=== PATIENT | female | born 1965 | race Caucasian/White ===

== ENCOUNTER 2018-06-02 00:32 | Inpatient (IN) | payer OTHER ==
[~2018-06-02] VITALS: Ht 144.8 cm; Wt 76.7 kg
[2018-06-03] VITALS (7 sets, daily range): BP systolic 87–115; BP diastolic 42–60
--- NOTE | 2018-06-03 00:45 | NUR ---
REPORT RECEIVED BY PHONE FROM JESUP NURSEJAGRUTI RN
--- NOTE | 2018-06-03 02:23 | NUR ---
PT ARRIVED AT UNIT VIA GURNEY, DIRECT ADMIT FROM [facility], PT AMBULATED TO BED, TOLERATED WELL, DAUGHTER GENET AT BEDSIDE, PT ON ROOM AIR NO SOB, IV TO L AC 20G PATENT, INTACT SL, IV TO R HAND 18G PATENT INTACT, RUNNING NS BOLUS, INFUSING WELL, PT DENIES ANY PAIN AT THIS MOMENT, ORIENT PT TO ROOM, CALL LIGHT AND BED, MRSA SWAB TAKEN, INITIAL ASSESSMENT DONE, ALL SAFETY PRECAUTION MET, CALL LIGHT WITHIN REACH, WILL CONTINUE TO MONITOR.
[2018-06-03] MEDS ORDERED: LORazepam 2 MG/ML VIAL IVP PRN (03:00)
[2018-06-03] MEDS ORDERED: HYDROcodone/APAP 5/325 MG 1 TAB TAB PO PRN (03:00)
[2018-06-03] MEDS ORDERED: ONDANSETRON 4 MG/2 ML VIAL IVP PRN (03:00)
[2018-06-03] MEDS ORDERED: MORPHINE SULFATE 4 MG/ML SYR IVP PRN (03:00)
[2018-06-03 03:44] LABS: HEMATOCRIT 29.8 % (36-48); HEMOGLOBIN 10.3 g/dL (12.0-16.0); MEAN CORPUSCULAR HEMOGLOBIN 30 pg (27-31); MEAN CORPUSCULAR HGB CONC 34 g/dL (33-37); MEAN CORPUSCULAR VOLUME 86.6 fL (80-94); PLATELET COUNT (AUTO) 129 K/uL (140-450); RED BLOOD CELL COUNT(AUTO) 3.44 MIL/uL (4.20-5.40); RED CELL DISTRIBUTION WIDTH 13.4 % (11.6-13.7); WHITE BLOOD COUNT (AUTO) 10.6 K/uL (4.8-10.8)
[2018-06-03 03:55] LABS: ANION GAP 13.3 (8-16); CREATININE 0.6 mg/dL (0.6-1.3); POTASSIUM 3.3 mmol/L (3.5-5.1)
[2018-06-03 04:10] LABS: ALBUMIN 2.2 g/dL (3.4-5.0); TOTAL BILIRUBIN 0.5 mg/dL (0.0-1.0)
[2018-06-03 04:55] LABS: LYMPHOCYTES % (MANUAL) 6 % (20-46); MONOCYTES % (MANUAL) 2 % (5-12)
[2018-06-03] MEDS: POTASSIUM CHL 20 MEQ/NACL 0.9% 1,000 ML IV SCH ×4 (05:26→21:35)
[2018-06-03] MEDS ORDERED: PIPERACILLIN/TAZOBACTAM 3.375 GM VIAL IV ONE (05:42)
[2018-06-03] MEDS: PIPER/TAZO 3.375GM/D5W PREMIX 50 ML IV SCH ×4 (05:49→23:58)
--- NOTE | 2018-06-03 05:49 | NUR ---
DUE MEDICATION ADMINISTERED, PT TOLERATED WELL, NO DISTRESS NOTED, CALL LIGHT WITHIN REACH, WILL CONTINUE TO MONITOR.
[2018-06-03] MEDS: ACETAMINOPHEN 325 MG TAB PO PRN (06:15)
--- NOTE | 2018-06-03 06:15 | NUR ---
PT STATED HAVING A HEADACHE AND HAVING CHILLS, CHECKED ON PT TEMP 99.7, TYLENOL GIVEN FOR MILD PAIN, PT TOLERATED WELL, NO DISTRESS NOTED, CALL LIGHT WITHIN REACH, WILL CONTINUE TO MONITOR.
--- NOTE | 2018-06-03 07:30 | NUR ---
ENDORSED PT TO DAY SHIFT NURSE ABBY RN, PT STABLE, NO DISTRESS NOTED, CALL LIGHT WITHIN REACH.
--- NOTE | 2018-06-03 08:17 | NUR ---
PAGED DR RAMIREZ TO NOTIFY ABOUT PATIENT'S LOW BP AND FEVER
--- NOTE | 2018-06-03 08:30 | NUR ---
SPOKE TO THE [place] AND INFORMED HIM ABOUT PATIENT'S FEVER AND LOW BP. ORDERS RECEIVED
[2018-06-03] MEDS ORDERED: MIDODRINE 5 MG TAB PO SCH (08:36)
[2018-06-03] MEDS: ENOXAPARIN 40 MG/0.4 ML SYR SUBQ SCH (09:00)
[2018-06-03] MEDS ORDERED: HYDROCORTISONE NA SUCC 100 MG/2 ML VIAL IV SCH (09:01)
--- NOTE | 2018-06-03 09:45 | NUR ---
PATIENT EVALUATED BY DR STOKES
--- NOTE | 2018-06-03 11:26 | NUR ---
PATIENT HAS BEEN SCREENED AND CATEGORIZED HIGH NUTRITION RISK. PATIENT WILL BE SEEN WITHIN 1-2 DAYS OF ADMISSION. 06/03/18 06/04/[address]
[2018-06-03] MEDS: HYDROCORTISONE NA SUCC 100 MG/2 ML VIAL IV SCH ×2 (13:20→21:35)
[2018-06-03] MEDS: MIDODRINE 5 MG TAB PO SCH ×2 (13:20→18:36)
--- NOTE | 2018-06-03 13:45 | NUR ---
CM NOTE INITIAL REVIEW FAXED TO [facility] [phone] CARON # [phone]
--- NOTE | 2018-06-03 16:45 | NUR ---
PATIENT AMBULATED TO THE RESTROOM TO VOID. NO S/S OF DISTRESS NOTED
--- NOTE | 2018-06-03 19:33 | NUR ---
PATIENT REPORT GIVEN AT BEDSIDE. PATIENT ENDORSED IN STABLE CONDITION
--- NOTE | 2018-06-03 19:34 | NUR ---
RECEIVED PT FROM ABBY RN PT TURKISH SPEAKER AAOX4, AMBULATORY IV ON RT HAND INFUSING WELL ON TELMETRY SR RELATIVES AT BED SIDE INITIAL ASSESSMENT DONE
--- NOTE | 2018-06-03 22:00 | NUR ---
PT RESTING ON BED ON TELEMETRY SR IV ON RT HAND INFUSING WELL
[2018-06-04 00:02] VITALS: BP 122/78
--- NOTE | 2018-06-04 00:06 | NUR ---
PT REMAIN STABLE NOT DISTRESS NOTED ON TELEMETRY SR IV ON RT HAND INFUSING WELL
[2018-06-04 04:00] VITALS: BP 132/64
--- NOTE | 2018-06-04 04:00 | NUR ---
SPONGE BATH GIVEN LINEN CHANGED NOT DISTRESS NOTED ON TELEMETR SB
[2018-06-04] MEDS: HYDROCORTISONE NA SUCC 100 MG/2 ML VIAL IV SCH (05:50)
[2018-06-04] MEDS: PIPER/TAZO 3.375GM/D5W PREMIX 50 ML IV SCH ×3 (05:53→18:04)
[2018-06-04] MEDS: MIDODRINE 5 MG TAB PO SCH ×3 (06:12→18:03)
--- NOTE | 2018-06-04 06:27 | NUR ---
PT AWAKE DENIES ANY PAIN OR DISCOMFORT REMAIN STBLE AT THIS TIME
--- NOTE | 2018-06-04 07:15 | NUR ---
RECEIVED PATIENT AWAKE IN BED. PATIENT DENIES ANY PAIN OR DISCOMFORT. NO S/S OF DISTRESS. PATIENT ON TELE MONITORING. BED LOWERED WITH CALL LIGHT WITHIN REACH. WILL CONTINUE TO MONITOR
[2018-06-04 07:25] LABS: BASOPHILS % (AUTO) 0.1 % (0.0-2.0); HEMATOCRIT 29.6 % (36-48); HEMOGLOBIN 10.2 g/dL (12.0-16.0); LYMPHOCYTES # (AUTO) 1.4 K/uL (2.5-16.5); LYMPHOCYTES % (AUTO) 9.1 % (20.5-51.1); MEAN CORPUSCULAR HEMOGLOBIN 29 pg (27-31); MEAN CORPUSCULAR HGB CONC 34 g/dL (33-37); MEAN CORPUSCULAR VOLUME 85.2 fL (80-94); MONOCYTES % (AUTO) 6.6 % (1.7-9.3); NEUTROPHILS # (AUTO) 13.4 K/uL (1.8-7.7); NEUTROPHILS % (AUTO) 84.2 % (42.2-75.2); PLATELET COUNT (AUTO) 180 K/uL (140-450); RED BLOOD CELL COUNT(AUTO) 3.48 MIL/uL (4.20-5.40); RED CELL DISTRIBUTION WIDTH 13.6 % (11.6-13.7)
[2018-06-04 07:27] LABS: ANION GAP 13.7 (8-16); CARBON DIOXIDE 21.3 mmol/L (21-32); CREATININE 0.5 mg/dL (0.6-1.3)
[2018-06-04 07:33] LABS: ALBUMIN 2.3 g/dL (3.4-5.0); TOTAL BILIRUBIN 0.3 mg/dL (0.0-1.0)
[2018-06-04 07:53] VITALS: BP 159/68
[2018-06-04] MEDS: ENOXAPARIN 40 MG/0.4 ML SYR SUBQ SCH (09:41)
--- NOTE | 2018-06-04 09:41 | NUR ---
ADMINISTERED DUE MEDICATIONS. DAUGHTER PRESENT AT BEDSIDE. PATIENT DENIES ANY DISCOMFORT
--- NOTE | 2018-06-04 10:13 | NUR ---
PATIENT AMBULATING AROUND THE UNIT. NO S/S OF DISTRESS NOTED
[2018-06-04 12:00] VITALS: BP 129/68
--- NOTE | 2018-06-04 13:29 | NUR ---
06/04/18 RD INITIAL ASSESSMENT COMPLETED PLEASE REFER TO NUTRITION ASSESSMENT UNDER CARE ACTIVITY FOR ESTIMATED NUTRITIONAL NEEDS. 1. CONTINUE REGULAR DIET TOLERATED 2. CONSIDER OBTAINING HgA1c TO TEST FOR PRE DIABETES PT WITH ELEVATED GLUCOSE LEVELS 3. RD TO FOLLOW-UP 3-5 DAYS, MODERATE NUTRITION RISK XAVIER MCFARLAND, RD
--- NOTE | 2018-06-04 15:14 | NUR ---
CM NOTE CONCURRENT REVIEW FAXED TO [facility] [phone] CARON # [phone]
--- NOTE | 2018-06-04 15:30 | NUR ---
PATIENT AWAKE IN BED, TALKING ON HER PHONE. NO S/S OF DISTRESS NOTED
[2018-06-04 16:00] VITALS: BP 126/69
--- NOTE | 2018-06-04 16:45 | NUR ---
PATIENT AWAKE IN BED. NO S/S OF DISTRESS NOTED. FAMILY MEMBERS PRESENT AT BEDSIDE
--- NOTE | 2018-06-04 19:16 | NUR ---
PATIENT REPORT GIVEN AT BEDSIDE. PATIENT ENDORSED IN STABLE CONDITION
--- NOTE | 2018-06-04 19:17 | NUR ---
RECEIVED REPORT FROM DAYSAKFT NURSE AT BEDSIDE FOR CONTINUITY OF CARE. PT AAOX4. YAKUT SPEAKING. PT IV NOTED RFA 22G TKO. NO SOB NO S/S OF DISTRESS ON RA. BED LOWERED CALL LIGHT WITHIN REACH WILL CONTINUE TO MONITOR.
[2018-06-04] MEDS: ACETAMINOPHEN 325 MG TAB PO PRN (19:56)
[2018-06-04 20:00] VITALS: BP 135/78
[2018-06-04 20:27] LABS: BASOPHILS % (AUTO) 0.2 % (0.0-2.0); EOSINOPHILS % (AUTO) 0.1 % (0.0-4.0); HEMATOCRIT 32.7 % (36-48); HEMOGLOBIN 10.9 g/dL (12.0-16.0); LYMPHOCYTES # (AUTO) 2.5 K/uL (2.5-16.5); LYMPHOCYTES % (AUTO) 13.2 % (20.5-51.1); MEAN CORPUSCULAR HEMOGLOBIN 29 pg (27-31); MEAN CORPUSCULAR HGB CONC 33 g/dL (33-37); MEAN CORPUSCULAR VOLUME 86.4 fL (80-94); MONOCYTES # (AUTO) 0.6 K/uL (0.8-1.0); MONOCYTES % (AUTO) 3.4 % (1.7-9.3); NEUTROPHILS # (AUTO) 15.6 K/uL (1.8-7.7); NEUTROPHILS % (AUTO) 83.1 % (42.2-75.2); PLATELET COUNT (AUTO) 229 K/uL (140-450); RED BLOOD CELL COUNT(AUTO) 3.79 MIL/uL (4.20-5.40); RED CELL DISTRIBUTION WIDTH 13.8 % (11.6-13.7); WHITE BLOOD COUNT (AUTO) 18.8 K/uL (4.8-10.8)
--- NOTE | 2018-06-04 21:05 | NUR ---
ADMIN TYLENOL FOR FEVER 100.7. PT TEMP NOW IS 100.2 WILL CONTINUE TO MONITOR. PT ALSO HAS ICE PACK ON THE BACK OF HER NECK.
[2018-06-04] MEDS ORDERED: cefTRIAXone 2,000 MG VIAL ONE (23:43)
[2018-06-04] MEDS: cefTRIAXone 2,000 MG in DEXTROSE 5% 100 ML IV SCH (23:59)
[2018-06-05] VITALS: BP 125/64
[2018-06-05] MEDS: ACETAMINOPHEN 325 MG TAB PO PRN ×3 (03:25→22:53)
[2018-06-05 04:00] VITALS: BP 109/61
--- NOTE | 2018-06-05 04:27 | NUR ---
ADMIN TYLENOL FOR MURGUIA. PT IS SLEEPING WILL CONTINUE TO MONITOR. PAIN MED TYLENOL WAS EFFECTIVE.
--- NOTE | 2018-06-05 04:57 | NUR ---
MD STOKES ASKED WHAT WAS GOING ON WITH HIS PT. I STATED SHE HAD A FEVER TODAY AT 1900 AND HE STATED. SHE NEEDED TO STAY AT HOSPITAL UNTIL NO FEVER AND WBC DECREASED. KIKE TALK TO PT DISCUSSED POC WITH PT. PT AGREED. HE ALSO STATED RAMIREZ WILL TAKE OVER THE CASE WHILE HE IS OFF. KIKE STATED HE SPOKE TO [place] AND [place] TOLD HIM THE RESULTS FOR BLOOD CULTURE WAS E.COLI WHICH IS RESISTANT TO ZOSYN. HE CHANGED ABX TO ROCEPHIN 2G. HE STATED [place] WILL FAX IN RESULTS.
--- NOTE | 2018-06-05 05:00 | NUR ---
SPOKE TO KIKE ABOUT PT BP BEING STABLE AND HE STATED DO NOT GIVE MIDODRINE. HE ALSO STATED HE WILL D/C MED. ALSO HE WILL ORDER DECONGESTION PER PT REQUEST. WILL CONTINUE TO MONITOR.
[2018-06-05] MEDS: MIDODRINE 5 MG TAB PO SCH (05:55)
[2018-06-05 05:58] LABS: BASOPHILS % (AUTO) 0.2 % (0.0-2.0); EOSINOPHILS % (AUTO) 0.2 % (0.0-4.0); HEMATOCRIT 26.7 % (36-48); HEMOGLOBIN 9.1 g/dL (12.0-16.0); LYMPHOCYTES # (AUTO) 1.4 K/uL (2.5-16.5); MEAN CORPUSCULAR HEMOGLOBIN 29 pg (27-31); MEAN CORPUSCULAR HGB CONC 34 g/dL (33-37); MEAN CORPUSCULAR VOLUME 85.1 fL (80-94); MONOCYTES # (AUTO) 0.7 K/uL (0.8-1.0); MONOCYTES % (AUTO) 5.9 % (1.7-9.3); NEUTROPHILS # (AUTO) 9.8 K/uL (1.8-7.7); NEUTROPHILS % (AUTO) 81.7 % (42.2-75.2); PLATELET COUNT (AUTO) 192 K/uL (140-450); RED BLOOD CELL COUNT(AUTO) 3.14 MIL/uL (4.20-5.40); RED CELL DISTRIBUTION WIDTH 13.5 % (11.6-13.7); WHITE BLOOD COUNT (AUTO) 11.9 K/uL (4.8-10.8)
[2018-06-05 06:40] LABS: ALBUMIN 2.2 g/dL (3.4-5.0); ANION GAP 11.2 (8-16); CARBON DIOXIDE 23.6 mmol/L (21-32); CREATININE 0.6 mg/dL (0.6-1.3); TOTAL BILIRUBIN 0.2 mg/dL (0.0-1.0)
[2018-06-05 06:49] LABS: POTASSIUM 2.8 mmol/L (3.5-5.1)
--- NOTE | 2018-06-05 06:54 | NUR ---
PAGED DR RAMIREZ WHO IS FINAL TESTER FOR JAMES. CALLING MD FOR CRITICAL LAB OF K: 2.8. WILL WAIT FOR CALL BACK.
--- NOTE | 2018-06-05 07:08 | NUR ---
ENDORSED REPORT TO DAYSHIFT NURSE AT BEDSIDE FOR CONTINUITY OF CARE.
--- NOTE | 2018-06-05 07:10 | NUR ---
RECEIVED PATIENT AWAKE, SITTING ON A CHAIR AT BEDSIDE. NO S/S OF DISTRESS. NO C/O PAIN. PATIENT ON TELE MONITORING. WILL CONTINUE TO MONITOR
--- NOTE | 2018-06-05 07:14 | NUR ---
ENDORSED REPORT TO DAYSHIFT NURSE AT BEDSIDE FOR CONTINUITY OF CARE.
[2018-06-05 07:41] VITALS: BP 124/79
[2018-06-05] MEDS: POTASSIUM CHLORIDE 10 MEQ TABER PO SCH ×2 (08:54→18:54)
[2018-06-05] MEDS: ENOXAPARIN 40 MG/0.4 ML SYR SUBQ SCH (09:00)
--- NOTE | 2018-06-05 09:15 | NUR ---
PATIENT AMBULATING AROUND THE UNIT. NO S/S OF DISTRESS NOTED
--- NOTE | 2018-06-05 10:30 | NUR ---
CM NOTE CONCURRENT REVIEW FAXED TO [facility] [phone] CARON # [phone]
[2018-06-05 13:15] VITALS: BP 133/76
--- NOTE | 2018-06-05 14:30 | NUR ---
PATIENT AWAKE, SITTING IN THE CHAIR AT BEDSIDE. NO S/S OF DISTRESS NOTED
--- NOTE | 2018-06-05 15:25 | NUR ---
CM NOTE RECEIVED ORDER FOR AUTHORIZATION FOR OUTPATIENT CEFDINIR. PER [facility] KIERA REARDON, CONTACT [facility] FOR ANY ORAL OUTPATIENT ANTIBIOTIC AUTHORIZATION. FAXED FACESHEET, H&P, ORDER FOR AUTHORIZATION FOR OUTPATIENT CEFDINIR TO [employer] [facility] ([facility]) FAX# [phone]. SPOKE WITH RAFAEL OF [employer] [facility] ([facility]) INPATIENT DEPT PH# [phone] EXT [phone] WHO CONFIRMED THAT THEY RECEIVED THE ORDER AND SHE SAID THE [employer]IBER [employer] SPLICER IS ROBERT PH# [phone] EXT [phone]. PER RAFAEL OF [employer] [facility] ([facility]) FOR AFTER HOURS/WEEKENDS TO CALL PH# [phone] EXT [phone], FAX# [phone]. SHE ALSO STATED THAT SHE WILL INFORM KIERA JONES ABOUT THE ORDER AND I GAVE HER THE NUMBER TO THE NURSING STATION WHERE PATIENT IS. LEFT MESSAGE FOR [facility] ([facility]) KIERA JONES PH# [phone] EXT [phone] INFORMING HER ABOUT THE ORDER REGARDING AUTHORIZATION FOR OUTPATIENT CEFDINIR. CHARGE NURSE MEY MORALES.
--- NOTE | 2018-06-05 15:58 | NUR ---
CM GREGORIO RECEIVED CALL FROM [employer] KIERA JONES WHO STATED THAT THE [facility] IS RESPONSIBLE FOR OUTPATIENT PO ANTIBIOTIC. CALLED [facility] TO INFORM HER AND SHE SAID THAT IF THAT IS WHAT [facility] THEN THE [facility] IS RESPONSIBLE FOR THE OUTPATIENT ANTIBIOTIC. PER [facility] CM [place], CALL [facility] PRIOR AUTHORIZATION DEPT TO CONFIRM IF THEY WOULD NEED ANYTHING FAXED TO THEM. SPOKE WITH [place]ON CUT OUT PRESS OPERATOR/DESULPHURIZER OPERATOR OF [facility] PRIOR AUTHORIZATION DEPT # [phone] WHO SAID THAT IF PATIENT HAS FAILED ON PRIOR ANTIBIOTIC AND ORGANISM IS RESISTANT THERE IS NO NEED FOR PRIOR AUTHORIZATION AND NO NEED TO FILL UP PRIOR AUTHORIZATION REQUEST FORM. PER ANALI, PATIENT JUST NEEDS TO BRING A PRESCRIPTION TO PHARMACY. CHARGE NURSE MEY MORALES.
--- NOTE | 2018-06-05 16:47 | NUR ---
SPOKE WITH DR STOKES NOTIFIED HE CAN WRITE THE ABX PRESCRIPTION . DR STOKES WILL ELECTRONICALLY SUBMIT TO [facility] IN [place] [address] [facility]. BUT HE WANTED DR GARCIA (id) COVERING DR HAYNES TO SEE THE PATIENT TOMORROW. DR GARCIA WILL SEE PATIENT TOMORROW 06/06
--- NOTE | 2018-06-05 16:50 | NUR ---
PATIENT AWAKE IN BED. NO S/S OF DISTRESS NOTED
[2018-06-05 17:00] VITALS: BP 147/78
[2018-06-05] MEDS ORDERED: POTASSIUM CHLORIDE 10 MEQ TABER PO SCH (19:00)
--- NOTE | 2018-06-05 19:22 | NUR ---
PATIENT REPORT GIVEN AT BEDSIDE. PATIENT ENDORSES IN STABLE CONDITION Addendum: 06/05/18 at 1923 by Felix Israel RN PATIENT REPORT GIVEN AT BEDSIDE. PATIENT ENDORSED IN STABLE CONDITION
--- NOTE | 2018-06-05 19:23 | NUR ---
RECEIVED REPORT AT BEDSIDE FOR CONTINUITY OF CARE PT AAOX4. ROMANSH SPEAKING. IV NOTED RFA 22G TKO. NO SOB NO S/S OF DISTRESS ON RA. AMBULATORY. BED LOWERED CALL LIGHT WITHIN REACH WILL CONTINUE TO MONITOR.
[2018-06-05 20:00] VITALS: BP 138/80
[2018-06-05] MEDS ORDERED: CEFD300C3 PO (20:50)
[2018-06-05] MEDS: cefTRIAXone 2,000 MG in DEXTROSE 5% 100 ML IV SCH (22:53)
--- NOTE | 2018-06-05 23:53 | NUR ---
ADMIN TYLENOL FOR MURGUIA 03/05 1 HR AGO. RE-ASSESSED PT AND PT IS SLEEPING. WILL CONTINUE TO MONITOR.
[2018-06-06] VITALS: BP 135/79
--- NOTE | 2018-06-06 02:45 | NUR ---
PT HR DROPPED TO 44 BRADYCARDIA. WENT TO ASSESS PT AND PLACE HOB 30 DEGREES AND WAS PUT ON O2 2L NC.
--- NOTE | 2018-06-06 02:46 | NUR ---
02 NC WORKING WELL PT HR IS AT 77 HR ON HEART MONITOR. WILL CONTINUE TO MONITOR.
[2018-06-06 04:00] VITALS: BP 144/73
--- NOTE | 2018-06-06 05:00 | NUR ---
PT IS SLEEPING NO SOB NO S/S OF DISTRESS WILL CONTINUE TO MONITOR.
[2018-06-06 06:04] LABS: BASOPHILS % (AUTO) 0.3 % (0.0-2.0); EOSINOPHILS # (AUTO) 0.1 K/uL (0-0.4); HEMATOCRIT 30.9 % (36-48); HEMOGLOBIN 10.6 g/dL (12.0-16.0); LYMPHOCYTES # (AUTO) 1.7 K/uL (2.5-16.5); LYMPHOCYTES % (AUTO) 21.2 % (20.5-51.1); MEAN CORPUSCULAR HEMOGLOBIN 29 pg (27-31); MEAN CORPUSCULAR HGB CONC 34 g/dL (33-37); MONOCYTES # (AUTO) 0.7 K/uL (0.8-1.0); MONOCYTES % (AUTO) 8.6 % (1.7-9.3); NEUTROPHILS # (AUTO) 5.5 K/uL (1.8-7.7); NEUTROPHILS % (AUTO) 68.9 % (42.2-75.2); PLATELET COUNT (AUTO) 230 K/uL (140-450); RED BLOOD CELL COUNT(AUTO) 3.63 MIL/uL (4.20-5.40); RED CELL DISTRIBUTION WIDTH 13.7 % (11.6-13.7)
[2018-06-06 06:26] LABS: ANION GAP 8.1 (8-16); CARBON DIOXIDE 26.5 mmol/L (21-32); CREATININE 0.5 mg/dL (0.6-1.3); POTASSIUM 3.6 mmol/L (3.5-5.1)
[2018-06-06 06:32] LABS: ALBUMIN 2.5 g/dL (3.4-5.0); TOTAL BILIRUBIN 0.3 mg/dL (0.0-1.0)
--- NOTE | 2018-06-06 07:28 | NUR ---
ENDORSED REPORT TO DAYSHIFT NURSE AT BEDSIDE FOR CONTINUITY OF CARE.
--- NOTE | 2018-06-06 07:28 | NUR ---
RECEIVED REPORT FROM PROPERTY SPECIALIST NURSE, PATIENT AMBULATING FROM RESTROOM TO BED, PATIENT AAOX4, PATIENT HAS A IV IN RIGHT FOREARM WITH A 22 AT TKO, PATIENT SPEAKS SLOVENIAN, NO SIGNS OF PAIN OR RESPIRATORY DISTRESS NOTED. BED IS IN LOWEST POSITION, PATIENT FAMILY AT BEDSIDE, CALL LIGHT WITHIN REACH, WILL CONTINUE TO MONITOR.
[2018-06-06 08:00] VITALS: BP_SYST 155; BP_SYST 159; BP_DIAS 82; BP_DIAS 90
[2018-06-06] MEDS: ENOXAPARIN 40 MG/0.4 ML SYR SUBQ SCH (08:15)
[2018-06-06] MEDS: ACETAMINOPHEN 325 MG TAB PO PRN (11:10)
[2018-06-06 12:00] VITALS: BP 155/90
--- NOTE | 2018-06-06 12:58 | NUR ---
PATIENT IN ROOM RESTING IN BED, FAMILY IS AT BEDSIDE, PATIENT SHOWS NO SIGNS OF PAIN OR DISCOMFORT. WILL CONTINUE TO MONITOR.
--- NOTE | 2018-06-06 15:00 | NUR ---
DR. RAMIREZ SPOKE TO PATIENT, PATIENT DECIDED TO LEAVE AMA, FORM SIGNED, REMOVED WRIST BAND AND IV, IV TIP INTACT. PATIENT IS STABLE, NO SIGNS OF PAIN OR RESPIRATORY DISTRESS NOTED, PATIENT HAS FAMILY AT BEDSIDE.
[2018-06-07] MEDS ORDERED: CEFD300C3 PO (11:46)
--- NOTE | 2018-06-08 10:46 | NUR ---
CM NOTE DC SUMMARY FAXED TO [facility] [phone] CARON # [phone]
== END 2018-06-06 15:00 | disposition left against medical advice (07) | DRG 720 ==
LOC: MTU 06-03 02:50
PROVIDERS: ADMIT Hospitalist; ATTEND Hospitalist
DX: A41.50 Gram-negative sepsis, unspecified (principal); D69.6 Thrombocytopenia, unspecified; N10 Acute pyelonephritis; D64.9 Anemia, unspecified; E66.9 Obesity, unspecified; R63.0 Anorexia; D72.828 Other elevated white blood cell count; T38.0X5A Adverse effect of glucocorticoids and synthetic analogues, initial encounter; B96.20 Unspecified Escherichia coli [E. coli] as the cause of diseases classified elsewhere; Z16.23 Resistance to quinolones and fluoroquinolones; Z53.21 Procedure and treatment not carried out due to patient leaving prior to being seen by health care provider; Z68.36 Body mass index [BMI] 36.0-36.9, adult; Z98.891 History of uterine scar from previous surgery; Y92.89 Other specified places as the place of occurrence of the external cause
CPT/HCPCS: 36415; 71045; 76770; 80053; 83605; 83880; 84484; 85025; 87040; 87081; 93005; J0696; J1650; J1720; J2543; J7030; J7060; Q0092; Q9967